=== PATIENT | female | born 1990 | race Caucasian/White ===

== ENCOUNTER 2016-10-03 14:46 | Inpatient (IN) | payer MEDICAID, OTHER ==
[~2016-10-03] VITALS: Ht 149.9 cm; Wt 59.1 kg
[2016-10-03 14:49] VITALS: BP 119/84; PULSE 70; RESP 16; O2SAT 97
[2016-10-03] MEDS ORDERED: TOPI25TA26 PO (14:52)
[2016-10-03] MEDS ORDERED: LURA20TA PO (14:52)
[2016-10-03] MEDS ORDERED: TRAZ-115 PO (14:52)
--- NOTE | 2016-10-03 16:06 | ED.REPORT ---
HPI-Psychiatric Illness Date of Service October 03, 2016 ED Provider: Marsha Worthy History of Present Illness: thinking about harming self. was ging to [place], has a car. ongoing for a few days. counselor is michel at [facility]. primary care is sandra at [facility]. here with her boss Nursing Notes Stated Complaint: SUICIDAL Chief Complaint: Psychiatric Complaint Nursing Notes Reviewed: Yes Allergies: Coded Allergies: oxycodone (Verified Allergy, Unknown, 10/03/16) amoxicillin (Verified Adverse Reaction, Severe, vomiting, 10/03/16) Scheduled Lurasidone (Latuda) 20 Mg Tablet 20 MG PO DAILY Topiramate (Topamax) 25 Mg Tablet 25 MG PO BID Trazodone (Trazodone) 50 Mg Tablet 50 MG PO HS General Time Seen by MD: 15:53 Chief Complaint Suicidal ideation Hx Obtained From: Patient Onset Occurred: More than a week ago... Symptom Duration: Since onset Risk-Psychiatric Illness Suicide Risk Stratification Suicide Risk Factors - Adult: : Close associate suicide (brook at 13 years old shoot herself): Family Hx of Suicide (uncle 04/01/2011m hung himself): Previous attempt (at 14 swallowed a bottle of pills, vicodin): Prior psych admission (at 14 years old and at 20)No: Access to firearms, Alcohol use, Substance abuse RF Statements: Risk factors reviewed Past Medical History Past Medical History Reports: Asthma (inhalers albuterol and a steroid inhaler, daily) Past Surgical History 6 weeks after surgery for infection Reports: (2011) Smoking History Never Smoker Social History Alcohol Use: Denies alcohol use Drug Use: Denies drug use Occupation lives with boyfriend, work at [employer] 10/03/2016 Ambulatory Status Independent Review of Systems Basic Review of Systems Eyes: Vision NL, No discharge Hematologic: No bleeding, No bruising Allergy / Immune: No allergy Physical Exam Initial Vital Signs Vital Signs (First) Date Time Temp Pulse Resp B/P Pulse Ox O2 Delivery O2 Flow Rate FiO2 10/03/16 14:49 36.6 70 16 119/84 97 Room Air Initial VS: Reviewed, Vital signs normal Head / Eyes: Atraumatic, Normocephalic, PERRL ENT: Mucous membranes moist, Conjunctiva normal, No scleral icterus Neck: Supple, Non-tender, Full range of motion Respiratory: Breath sounds normal, Clear to auscultation, No respiratory distress Cardiovascular: Regular rate & rhythm, Heart sounds normal, Intact distal pulses Abdomen / GI: Soft, Non-tender, No guarding, No rebound, No distention Back: No CVA tenderness Lymphatic: No lymphadenopathy Extremities: Vascular intact, Neuro intact, No swelling, No tenderness Skin: Warm, Dry, No cyanosis General/Constitutional: Awake, Alert, No acute distress, Well appearing, Well developed, Well hydrated, Well nourished, Cooperative, Not toxic appearing Neurologic: Oriented X3, Speech NL, No motor deficits, No sensory deficits, Cerebellar NL, Memory NL, Gait NL Abnormal Mood/Affect: Positive: Flat affect Abnormal Thinking / Perception: Positive: Suicidal, with plan Head / Eyes: Atraumatic, Normocephalic, PERRL Respiratory / Chest: Atraumatic, Breath sounds NL, Breath sounds = bilat, No respiratory distress Cardiovascular: Heart rate NL, Regular rhythm, Heart sounds NL, No gallop Interpretation & Diagnostics Lab Results Interpretation Result Diagram: 10/03/16 1630 10/03/16 1630 Test 10/03/16 15:33 10/03/16 16:30 10/03/16 16:38 Hold Urine Received (Received) White Blood Count 8.5th/mm3 (3.8-10.1) Red Blood Count 4.63mil/mm3 (3.90-5.20) Hemoglobin 13.7g/dL (12.0-15.6) Hematocrit 39.8% (35.0-46.0) Mean Corpuscular Volume 86.0fL (81-100) Mean Corpuscular Hemoglobin 29.6pg (27.0-35.0) Mean Corpuscular Hemoglobin Concent 34.4% (32.0-37.0) Red Cell Distribution Width 12.6% (12.3-15.4) Platelet Count 278bil/L (150-400) Neutrophils (%) (Auto) 42.8% (40-74) Lymphocytes (%) (Auto) 35.6% (14-46) Monocytes (%) (Auto) 6.5% (4-12) Eosinophils (%) (Auto) 14.3% (0-5) Basophils (%) (Auto) 0.6% (0-3) Sodium Level 143mEq/L (134-144) Potassium Level 3.9mEq/L (3.5-5.2) Chloride Level 105mEq/L (97-108) Carbon Dioxide Level 23mmol/L (18-29) Blood Urea Nitrogen 12mg/dL (6-20) Creatinine 0.68mg/dL (0.57-1.00) Estimat Glomerular Filtration Rate 150mL/min (>59) Glucose Level 98mg/dL (60-99) Calcium Level 9.7mg/dL (8.5-10.1) Total Bilirubin 0.2mg/dL (0.0-1.2) Aspartate Amino Transf (AST/SGOT) 20U/L (0-50) Alanine Aminotransferase (ALT/SGPT) 20U/L (0-32) Alkaline Phosphatase 71U/L (25-150) Total Protein 7.0g/dL (6.4-8.4) Albumin 4.5g/dL (3.4-5.0) Thyroid Stimulating Hormone (TSH) 1.270uIU/mL (0.450-4.500) Hold Millan Top Tube Received (Received) Lab Results Interpretation: utox is negative alcohol is negative. TSH is normal Re-Eval/Medical Decision Med Decision/Clinical Course 25 year old female presents to the ER for safety concerns for herself. She has a plan to [place] [address] to [place] herself. Labs are unremarkable. [facility] is working on placement. 2019, has been accepted upstairs, [facility] cert. they want her at 11pm Discharge & Departure Impression: Primary Impression: Suicidal intent )( Condition at Discharge: Clear for psych facility Disposition: ADMITTED TO HOSPITAL Referrals: Dmias Mayen MD (PCP) EDSupervising Provider for APC: Dung Jimenez MD copies to: Dimas Mayen MD, Sue ARNP October 03, 2016 16:06
[2016-10-03 16:43] LABS: BASOPHILS % (AUTO) 0.6 % (0-3); EOSINOPHILS % (AUTO) 14.3 % (0-5); MONOCYTES % (AUTO) 6.5 % (4-12); Mean Corpuscular Hemoglobin 29.6 pg (27.0-35.0); NEUTROPHILS % (AUTO) 42.8 % (40-74); Platelet Count 278 bil/L (150-400)
[2016-10-03 19:20] VITALS: BP 97/58; PULSE 83; RESP 16; O2SAT 97
[2016-10-04] MEDS ORDERED: Magnesium Hydroxide 10 mL Oral Concentration PO PRN (00:35)
[2016-10-04] MEDS ORDERED: Alum-Mag Hydrox-Simeth 30 mL Suspension PO PRN (00:35)
[2016-10-04] MEDS ORDERED: hydrOXYzine Pamoate 25 mg Capsule PO PRN (00:35)
[2016-10-04] MEDS ORDERED: Benzocaine-Menthol Lozenge 2/Pkg PO PRN (00:35)
[2016-10-04] MEDS ORDERED: Albuterol HFA 60 Puff 8 Gm Inhaler INHALATION PRN (01:35)
[2016-10-04] MEDS ORDERED: [UNRECOGNIZED DRUG - OTHER] INHALATION PRN (05:11)
[2016-10-04] MEDS: LORazepam 1 mg Tablet PO PRN (08:08)
[2016-10-04 09:13] VITALS: BP 92/63; PULSE 78; RESP 16
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
[2016-10-05] MEDS: ARIPiprazole 10 mg Tablet PO SCH (07:53)
[2016-10-05 08:39] VITALS: BP 103/66; PULSE 99; RESP 20
--- NOTE | 2016-10-05 16:16 | PCM.PNPSY ---
Subjective Date of Service October 05, 2016 Subjective The patient reports that she woke up this morning and felt "groggy and in a daze." She reports that overall her symptoms appear improved. She had a visit from her fianc who is supportive. She indicated she may wish to leave today but her outpatient office was closed. We discussed the need to stabilize her on aripiprazole and prazosin prior to discharge. Since the patient is experiencing some side effects it would be preferred to determine whether she will feel to continue this medication prior to discharge given her significant suicidal intent. The patient was agreeable to this plan. She also reported chronic back pain of years duration with family history of similar. We discussed using an eggcrate mattress and she was agreeable. Sleep: 8+ hours "woke up a lot" Appetite: "I eat cereal." Suicidal and homicidal ideation: Denies Auditory hallucinations: Denies Visual hallucinations: Denies Other Psychotic Symptoms: N/A Anxiety: 0/10 Depression: 0/10 Current Medications Current Medications Acetaminophen 650 mg Q4H PRN PO Last administered on 10/05/16 11:24; Admin Dose 650 MG; Start 10/04/16 at 00:35 Aripiprazole 5 mg ONCE ONCE PO Last administered on 10/04/16 15:13; Admin Dose 5 MG; Start 10/04/16 at 14:50; Stop 10/04/16 at 14:55; Status DC Aripiprazole 10 mg DAILY PO Last administered on 10/05/16 07:53; Admin Dose 10 MG; Start 10/05/16 at 08:30 Ibuprofen 600 mg Q6H PRN PO Last administered on 10/05/16 07:56; Admin Dose 600 MG; Start 10/04/16 at 00:35 Lorazepam 1 mg Q4H PRN PO Last administered on 10/04/16 08:08; Admin Dose 1 MG ; Start 10/04/16 at 00:35 Lurasidone HCl 20 mg DAILYWM PO Last administered on 10/04/16 08:08; Admin Dose 20 MG; Start 10/04/16 at 08:00; Stop 10/04/16 at 14:50; Status DC Prazosin HCl 1 mg HS PO Last administered on 10/04/16 20:59; Admin Dose 1 MG; Start 10/04/16 at 21:00 Topiramate 25 mg BID PO Last administered on 10/04/16 20:59; Admin Dose 25 MG; Start 10/04/16 at 00:37; Stop 10/04/16 at 23:33; Status DC Topiramate 50 mg BID PO Last administered on 10/05/16 07:53; Admin Dose 50 MG; Start 10/05/16 at 08:30 Trazodone HCl 50 mg HS PO Last administered on 10/04/16 20:59; Admin Dose 50 MG ; Start 10/04/16 at 00:36 Mental Status Exam Vital Signs Vital Signs Date Time Temp Pulse Resp B/P Pulse Ox O2 Delivery O2 Flow Rate FiO2 10/05/16 08:39 36.4 99 20 103/66 Appearance: Neat/well groomed Attitude: Pleasant, Cooperative Behavior: Other (smiling occasionally incongruous with situaiton.) Affect: Restricted Mood: Euthymic Thought Process/Associations: Logical/Sequential, Goal Directed Speech Production: Normal Speech Rate: Normal Speech Articulation: Normal Thought Content: Appropriate Danger to Self/Suicidal Ideati: None Danger to Others: None Hallucinations: Auditory (Denies), Visual (Denies) Consciousness: Alert Orientation: Person, Place, Date, Situation Memory: Grossly Intact Estimate Intellectual Function: Average Basis for IQ estimate: Awareness current events, Word use/vocabulary, Educational history, Employment history Attention/Concentration & Cogn: Grossly Intact Insight: Good Judgement: Good Result Diagram: 10/03/16 1630 10/03/16 1630 Mental Health Plan The patient is a 25 year old female with a history of bipolar disorder and PTSD who presents with worsening SI after running out of medication. Patient has had either no positive effect or negative effect from typical PTSD medications but has not had a trial of prazosin. Patient cannot afford current medication. With coupon aripiprazole fairly affordable. Discussed recent stay with her outpatient psychiatrist who concurred with plan to discontinue lurasidone, initiate prazosin and aripiprazole. The patient reports that she did not have nightmares but was experiencing side effects from medication which included drowsiness. She also reported feeling "in a daze". She was advised that since this is a new medication and it has a long half-life it would be fuentes to make sure that the side effects and the therapeutic effects of the medication persist prior to discharge. She was amenable to this plan. [place] AXIS I: Bipolar disorder, current episode depressed PTSD AXIS II: Defer AXIS III: None acute AXIS IV: Moderate AXIS V: GAF 25 Medications Aripiprazole 10 mg daily Topiramate 50 mg twice daily Trazodone 50 mg at bedtime Prazosin 1 mg at bedtime Treatments 1. The patient is admitted to the inpatient unit and will be provided a safe and secure environment. 2. The patient is denying current active suicidality and is not in need of a one-to-one at this time. Patient currently reporting passive SI and if worsens agrees to notify staff. 3. The patient is encouraged to participate with group and milieu activities. 4. The patient will be seen by the treatment team on a daily basis to assess symptoms, side effects and response to treatment. 5. Aripiprazole 10mg daily; consider moving to p.m. if grogginess persists. 6. Prazosin 1mg nightly and titrate as needed if nightmares returned and grogginess results.. 7. Topamax 50mg po bid. 8. Trazodone 50mg po nightly 8. Anticipated length of stay is 7-10 days. Horacio Rios MD October 05, 2016 16:16
[2016-10-06] MEDS: LORazepam 1 mg Tablet PO PRN (01:58)
[2016-10-06] MEDS: ARIPiprazole 10 mg Tablet PO SCH (08:09)
[2016-10-06 13:02] VITALS: BP 106/65; PULSE 80; RESP 16
--- NOTE | 2016-10-06 14:32 | PCM.PNPSY ---
Subjective Date of Service October 06, 2016 Subjective I spent 30 minutes both reviewing treatment plan with clinical team, interviewing the patient and providing supportive/educational psychotherapy. I spent more than 50% of the time counseling the patient. I reviewed the treatment plan with the patient and discussed options available including the potential risks, benefits and side effects. Mindy reports poor mood stability, being excessively sedated during the day and unable to sleep well at night, and continued suicidal ideation. Staff reports that she has been active and participating well in one-to-one unit and group activities. She slept 8 hours and denies manic or psychotic symptoms review. She denies medication side effects. Patient was able to identify her medications and what they were used to treat. Current Medications Current Medications Aripiprazole 5 mg ONCE ONCE PO Last administered on 10/04/16 15:13; Admin Dose 5 MG; Start 10/04/16 at 14:50; Stop 10/04/16 at 14:55; Status DC Aripiprazole 10 mg DAILY PO Last administered on 10/06/16 08:09; Admin Dose 10 MG; Start 10/05/16 at 08:30 Ondansetron HCl 4 mg Q2H PRN PO Last administered on 10/05/16 20:06; Admin Dose 4 MG; Start 10/05/16 at 20:00 Prazosin HCl 1 mg HS PO Last administered on 10/05/16 21:16; Admin Dose 1 MG; Start 10/04/16 at 21:00 Topiramate 50 mg BID PO Last administered on 10/06/16 08:10; Admin Dose 50 MG; Start 10/05/16 at 08:30 Mental Status Exam Vital Signs Vital Signs Date Time Temp Pulse Resp B/P Pulse Ox O2 Delivery O2 Flow Rate FiO2 10/06/16 13:02 36.3 80 16 106/65 Appearance: Neat/well groomed Attitude: Pleasant, Cooperative Behavior: Other (smiling occasionally incongruous with situaiton.) Affect: Restricted Mood: Euthymic Thought Process/Associations: Logical/Sequential, Goal Directed Speech Production: Normal Speech Rate: Normal Speech Articulation: Normal Thought Content: Appropriate Danger to Self/Suicidal Ideati: None Danger to Others: None Consciousness: Alert Orientation: Person, Place, Date, Situation Memory: Grossly Intact Estimate Intellectual Function: Average Basis for IQ estimate: Awareness current events, Word use/vocabulary, Educational history, Employment history Attention/Concentration & Cogn: Grossly Intact Insight: Good Judgement: Good Result Diagram: 10/03/16 1630 10/03/16 1630 Mental Health Plan [place] AXIS I: Bipolar disorder, current episode depressed PTSD AXIS II: Defer AXIS III: None acute AXIS IV: Moderate AXIS V: GAF 35 Medications Aripiprazole 10 mg daily Topiramate 50 mg twice daily Trazodone 50 mg at bedtime Prazosin 1 mg at bedtime Treatments 1. The patient is admitted to the inpatient unit and will be provided a safe and secure environment. 2. The patient is denying current active suicidality and is not in need of a one-to-one at this time. Patient currently reporting passive SI and if worsens agrees to notify staff. 3. The patient is encouraged to participate with group and milieu activities. 4. The patient will be seen by the treatment team on a daily basis to assess symptoms, side effects and response to treatment. 5. Move Aripiprazole 10mg to at bedtime 6. Prazosin 1mg nightly and titrate as needed if nightmares returned and grogginess results.. 7. Topamax 50mg po bid. 8. Trazodone 50mg po nightly 8. Anticipated length of stay is 7-10 days. Ranjiht Gutierrez MD October 06, 2016 14:32
[2016-10-07 08:30] VITALS: BP 98/63; PULSE 98; RESP 20
[2016-10-07] MEDS ORDERED: ARIP10TA14 PO (12:31)
[2016-10-07] MEDS ORDERED: PRAZ1CAP PO (12:31)
[2016-10-07] MEDS ORDERED: TRAZ-115 PO (12:31)
[2016-10-07] MEDS ORDERED: TOPI25TA26 PO (12:31)
--- NOTE | 2016-10-07 12:34 | PCM.DIMED ---
Discharge Instructions Date of Service October 07, 2016 Dates of Hospitalization October 03, 2016 at 21:26 Discharge Diagnosis Discharge Diagnosis [place] AXIS I: Bipolar disorder, current episode depressed PTSD AXIS II: Defer AXIS III: None acute AXIS IV: Moderate AXIS V: GAF 45 Medication Instructions I Strongly encouraged patient to follow up with outpatient care: 1-Recommended patient takes medication as prescribed and not alter this unless under the direct care of a provider. Medications Aripiprazole 10 mg daily Topiramate 50 mg twice daily Trazodone 50 mg at bedtime Prazosin 1 mg at bedtime 2-Recommend client refrain from recreational drugs and alcohol while taking psychiatric medications. 3--Recommend patient attempt to find a therapist or group to deal with impulse control and interpersonal relationship conflicts Diet No restrictions Activity No restrictions Call your provider Fever or Chills Patient Instructions Patient to follow up with [facility]. She has an ongoing relationship with therapist Marisol Mcdowell patient reports she will schedule with Marisol within the next [address] Babak Frazier a tele-psych psychiatrist from [place] that sees her in the [facility] office. She will schedule with him in the next 2 weeks. Follow-up with PCP in: 2 weeks Ranjith Gutierrez MD October 07, 2016 12:34
[2016-10-07] MEDS ORDERED: ARIPiprazole 10 mg Tablet PO SCH (21:00)
--- NOTE | 2016-10-07 21:13 | DIS ---
[address] [address] DISCHARGE SUMMARY PATIENT: NELLY PURVIS : 1990 MR#: [id number] ADMIT: 10/03/2016 JOB ID: [id number] DIS: 10/07/2016 DATE OF ADMISSION: 10/04/2016 DATE OF DISCHARGE: 10/07/2016 IDENTIFICATION: The patient is a 28-year-old female with a history of bipolar mood disorder and PTSD. She is currently engaged to be . She lives in [place]. 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 She moved in [place] in 2011 with her fiancee. REASON FOR ADMISSION: Client reports a series of stressor relating to switching jobs, filing for bankruptcy, losing her health insurance and having a fight with her boyfriend that produced severe emotional overwhelm and she found herself driving to the [place] to commit suicide. SUMMARY OF PRESENT ILLNESS: Client reportedly has a history of bipolar mood disorder and PTSD who presented complaining of worsening suicidal ideation after a series of stressors and losing her insurance. This also resulted in losing her medications and with this combination she felt that suicide was the only answer and nearly jumped off the [place] bridge. She was admitted here on a voluntary basis for safety and treatment. HOSPITAL COURSE: Client is admitted to our unit and was provided with high degree of safety through the structure and active adult engagement she received here. We had her participate in a one-to-one unit and group activities focused on improving coping skills as well as coming up with a safety plan should suicidal ideation recur after discharge. Client participated in all the above and detailed a reasonable safety plan with me. She was started on a combination of medications, Abilify 10 h.s. Topamax 50 twice a day, trazodone 50 h.s. and Prazosin 1 mg h.s. She tolerated these medications well without any side effects and noticed a gradual improvement in mood stability and thought organization over the past 72 hours. The patient currently requesting discharge. MENTAL STATUS: Client neatly and stylishly dressed, calm, pleasant and cooperative. Speech was normal. Mood was euthymic. Affect congruent. Normal intensity. Thought process: Client is able to relate a coherent history. She is able to appreciate simple and complex abstractions. No neurovegetative signs of depression. No signs of psychosis. Thought content: Significant for themes of future planning, how she is going to take care of herself. She detailed a reasonable safety plan with me and denied suicidal ideation. Alert and oriented to person, place, and date. Attention and concentration normal. Judgment and insight appropriate. Impulse control highly contained. Reality testing intact. Competence to handle current stressors appears to be at baseline. DISCHARGE DIAGNOSIS: [place] I1. Bipolar mood disorder, current episode depressed. 2. Post traumatic stress disorder. [place] IIDefer. [place] IIINone. [place] IVModerate. [place] VGAF 45. DISCHARGE MEDICATIONS: 1. Abilify 10 h.s. 2. Topamax 50 twice a day. 3. Trazodone 50 h.s. 4. Prazosin 1 mg h.s. ACTIVITY AND DIET: Recommend client refrain from recreational drugs and alcohol while taking psychiatric medications. Recommend she follow up with outpatient appointments. Client to see therapist, Marisol Mcdowell within the next two weeks and telepsychiatrist, Dr. Babak Frazier through the [facility] as well in the next two weeks. CONDITION ON DISCHARGE: Good. PROGNOSIS: Good.
== END 2016-10-07 13:05 | disposition home or self-care (01) | DRG 885 ==
LOC: SED 14:46 → MHC 21:26
PROVIDERS: ADMIT Psychiatry & Neurology Psychiatry; ATTEND Psychiatry & Neurology Psychiatry
DX: F31.9 Bipolar disorder, unspecified (principal); R45.851 Suicidal ideations; Z62.810 Personal history of physical and sexual abuse in childhood; Z91.5 Personal history of self-harm; T43.596A Underdosing of other antipsychotics and neuroleptics, initial encounter; T43.216A Underdosing of selective serotonin and norepinephrine reuptake inhibitors, initial encounter; T44.6X6A Underdosing of alpha-adrenoreceptor antagonists, initial encounter; Z91.120 Patient's intentional underdosing of medication regimen due to financial hardship; F43.10 Post-traumatic stress disorder, unspecified